=== PATIENT | female | born 1975 | race Caucasian/White ===

== ENCOUNTER → 2023-12-27 14:46 | Outpatient (REF) | payer OTHER, SELFPAY | LOC: WDC 14:46 | PROVIDERS: ATTENDING PHYSICIAN Physician Assistant | DX: Z12.31 Encounter for screening mammogram for malignant neoplasm of breast (principal) | CPT/HCPCS: 77063; 77067 ==

== ENCOUNTER 2024-02-11 08:38 | Emergency (ER) | payer OTHER, SELFPAY ==
[2024-02-11 08:45] VITALS: BP 99/66
--- NOTE | 2024-02-11 09:16 | ED.MUSCINJ ---
HPI-Injury
General
Chief Complaint: Musculo-Skeletal Complaint
Source: patient
Exam Limitations: none
Time Seen by Provider: 02/11/24 09:03
History of Present Illness-Injury
Initial Injury comments:
48-year-old female presents complaining of persistent right neck and shoulder pain over the past 5 to 6 weeks occasionally radiates down the arm into the hand. No pleuritic pain. No chest pain or shortness of breath. The pain is made worse when
she moves her neck. She is right-handed. She works as a [employer]. She is healthy otherwise. No other pains at this time
Past History
Past History
ED Past Medical History: None
ED Past Surgical History: None
Social History
Tobacco: Non-smoker
Personal:
Phy Exam
Physical Exam
Physical Exam:
General: Well-appearing female no acute respiratory distress
HEENT: Normocephalic atraumatic
Heart: Regular rate and rhythm no murmurs
Lungs: Clear no wheeze
Musculoskeletal exam: Patient is tender over the medial border of the scapula and superior to this in the area of the trapezius. She has good active and passive range of motion of the right shoulder. No reproducible pain with motion of the
shoulder. Skin is without rash
Neurologic: Good sensation and strength to the right upper extremity
Vascular: 2+ radial pulse right wrist
MDM/Problems Addressed
Differential Diagnosis Includes:
Right neck and shoulder plain. Reproducible on exam to palpation of the trapezius. Not pleuritic do not suspect PE vital signs are stable. Question possible cervical strain versus radiculopathy. She has been using ibuprofen without significant
relief. Will prescribe a steroid for potential acute radicular symptoms advise warm compresses and orthopedic follow-up. Considered imaging however not indicated at this time.
*Critical Care Note
Total Time (30-74mins, 75-104mins- exclusive of procedures): Not Applicable
ED Attending Note
-
Portions of this chart may have been created with voice recognition software.� Occasional wrong word or��sound alike� substitutions may have occurred due to the inherent limitations of voice recognition software.
Discharge Plan
Departure
Patient Disposition: Home (Routine Discharge)
Date of Disposition: 02/11/24
Time of Disposition: 09:19
Patient with high blood pressure during this ER visit?: No
Discharge Problem:
Cervical radiculopathy
Instructions: Muscle and Bone Pain (DC)
Prescriptions:
New
prednisone 10 mg Tablet
See Rx Instructions .ROUTE .COMPLEX Qty: 30 0RF
Rx Instructions:
Take By Mouth:
40 mg daily x3 days, 30 mg daily x3 days,
20 mg daily x3 days, 10 mg daily x3 days.
No Action
acetaminophen 325 MG tablet
650 mg PO Q4HPRN PRN (Reason: headache) 0RF
ibuprofen 600 MG tablet
400 mg PO Q4HPRN PRN (Reason: headache or cramps) 0RF
Referrals:
Jacinta Weber PA-C [Family Provider] -
Francois Burciaga MD [Active] -
Activity Restrictions/Additional Instructions:
Use warm compresses to the area. Consider Lidoderm patches [id number]. Use steroid as directed. Return if worse otherwise follow-up with orthopedics
Interventions
Interventions:
*Risk Screen - Suicide Last Done: 02/11/24 08:45
*General Assessment Last Done: 02/11/24 08:45
*Neglect/Abuse Screening Last Done: 02/11/24 08:45
Discharge Date and Time
Print Language: TELUGU
== END 2024-02-11 09:37 | disposition home or self-care (01) ==
LOC: EMR 08:38
PROVIDERS: EMERGENCY PHYSICIAN Student in an Organized Health Care Education/Training Program; FAMILY PHYSICIAN Physician Assistant
DX: M54.12 Radiculopathy, cervical region (principal)
CPT/HCPCS: 99282